=== PATIENT | male | born 2000 | race Hispanic/Latino ===

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

== ENCOUNTER 2020-02-21 12:43 | Emergency (ER) | payer OTHER ==
[~2020-02-21] VITALS: Ht 175.3 cm; Wt 84.0 kg
[2020-02-21] MEDS ORDERED: KEFLEX500 M1 PO (13:42)
[2020-02-21 14:11] VITALS: BP 127/77
== END 2020-02-21 14:23 | disposition home or self-care (01) | DRG 603 ==
LOC: ED 12:43
PROC: 0H98XZZ Drainage of Buttock Skin, External Approach (ICD-10-PCS; principal; 2020-02-21)
DX: L05.01 Pilonidal cyst with abscess (principal)

== ENCOUNTER 2023-04-01 17:42 | Emergency (ER) | payer OTHER ==
[~2023-04-01] VITALS: Ht 175.3 cm; Wt 96.0 kg
[2023-04-01] VITALS (7 sets, daily range): BP systolic 125–135; BP diastolic 80–94
[~2023-04-01 17:42] MED LIST changes: +KEFLEX500 M1 PO
[2023-04-01 18:53] LABS: BASO% 0.3 % (0-3); EOS% 2.7 % (0-8); HEMATOCRIT 44.4 % (39.0-50.0); HEMOGLOBIN 15.6 g/dl (14.0-18.0); IMMATURE GRANULOCYTES 0.1 % (0.0-5.0); LYMPH% 29.2 % (15-41); MEAN CELL VOLUME 87.9 fL CALC (80.0-100.0); MEAN CORPUSCULAR HGB 30.9 pG CALC (26.0-32.0); MEAN CORPUSCULAR HGB CONC 35.1 g/dL CAL (32.0-36.0); MONO% 8.8 % (2-13); NEUT# 8.01 thou/uL (1.82-7.42); NEUT% 58.9 % (42-76); RED BLOOD COUNT 5.05 mill/uL (4.70-6.10); RED CELL DISTRI WIDTH 12.4 % (11.5-15.5)
[2023-04-01 19:09] LABS: ALKALINE PHOSPHATASE 93 u/l (38-126); AMYLASE 51 u/l (30-110); ANION GAP 13 (6-22 (CALC)); BUN 12 mg/dL (9-20); BUN/CREATININE RATIO 13 (12-20 (CALC)); CARBON DIOXIDE 28 mmol/l (22-30); CHLORIDE 104 mmol/l (95-108); CREATININE 0.9 mg/dL (0.7-1.3); GFR FOR AFR.AMER. > 60 ML/MIN (>=60 (CALC)); GFR OTHER RACES > 60 ML/MIN (>=60 (CALC)); LIPASE 127 u/l (23-300); POTASSIUM 4.3 mmol/l (3.5-5.1); SGOT/AST 30 u/l (17-59); SODIUM 141 mmol/l (137-146); TOTAL PROTEIN 7.8 g/dL (6.3-8.2)
[2023-04-01 19:14] LABS: ALBUMIN 5.2 g/dL (3.2-5.0)
[2023-04-01] MEDS ORDERED: IMODIUM2 MG PO (20:19)
[2023-04-01] MEDS ORDERED: DIPHENOXYLATE W/ ATROPINE 2.5 MG TAB PO ONE (20:20)
== END 2023-04-01 20:56 | disposition home or self-care (01) | DRG 392 ==
LOC: ED 17:42
PROVIDERS: Family Medicine
DX: R19.7 Diarrhea, unspecified (principal); K62.89 Other specified diseases of anus and rectum; K21.9 Gastro-esophageal reflux disease without esophagitis; Z72.53 High risk bisexual behavior